=== PATIENT | male | born 1970 ===

== ENCOUNTER 2018-09-14 21:35 | Emergency (ER) | payer MEDICAID ==
[2018-09-14 22:02] VITALS: O2SAT 98
--- NOTE | 2018-09-14 22:19 | C.PDOC ---
Time Seen by Provider: 09/14/18 22:19 Chief Complaint (Nursing): Substance Abuse Past Medical History Vital Signs: Last Vital Signs Temp 98.1 F 09/14/18 21:54 Pulse 106 H 09/14/18 21:54 Resp 22 09/14/18 21:54 BP 123/80 09/14/18 21:54 Pulse Ox 98 09/14/18 21:54 - Medical History PMH: Bipolar Disorder, Post Traumatic Stress Disorder, Schizophrenia - Social History Hx Alcohol Use: No Hx Substance Use: Yes - Immunization History Hx Tetanus Toxoid Vaccination: Yes Hx Influenza Vaccination: Yes Hx Pneumococcal Vaccination: No ED Course And Treatment O2 Sat by Pulse Oximetry: 98 Disposition Counseled Patient/Family Regarding: Studies Performed, Diagnosis - Disposition Disposition Time: 22:19
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
[2018-09-14] MEDS ORDERED: White Petrolatum/Mineral Oil Ophth Oint(3.5 gm) OU STA (22:38)
[2018-09-14] MEDS ORDERED: Carboxymethylcellulose 1% Ophth Soln OD PRN (22:52)
[2018-09-14 23:47] LABS: BASO % 0.6 % (0.0-2.0); EOS # 0.1 K/uL (0.0-0.7); EOS % 1.8 % (0.0-4.0); HEMOGLOBIN 13.2 g/dL (12.0-18.0); LYMPH # 2.1 K/uL (1.0-4.3); LYMPH % 30.3 % (20.0-40.0); MEAN CELL VOLUME 85.2 fL (80.0-94.0); MEAN CORPUSCULAR HEMOGLOBIN 28.3 pg (27.0-31.0); MEAN CORPUSCULAR HGB CONC 33.3 g/dL (33.0-37.0); MEAN PLATELET VOLUME 8.3 fL (7.2-11.7); MONO # 0.8 K/uL (0.0-0.8); MONO % 10.8 % (0.0-10.0); NEUT % 56.5 % (50.0-75.0); RBC 4.67 Mil/uL (4.40-5.90); RED CELL DISTRIBUTION WIDTH 15.7 % (11.5-14.5)
[2018-09-14 23:51] LABS: SQUAMOUS EPITHIAL 1 /hpf (0-5); URINE BACTERIA OCC (<OCC); URINE BILIRUBIN NEGATIVE (NEGATIVE); URINE BLOOD NEGATIVE (NEGATIVE); URINE CLARITY Clear (Clear); URINE COLOR Yellow (YELLOW); URINE GLUCOSE (UA) NORMAL (Normal); URINE LEUKOCYTE ESTERASE NEG Leu/uL (Negative); URINE PROTEIN NEGATIVE (NEGATIVE)
[2018-09-14 23:56] LABS: PROTHROMBIN TIME 10.8 SECONDS (9.7-12.2)
[2018-09-14 23:59] LABS: BLOOD UREA NITROGEN 25 mg/dL (9-20); CALCIUM 8.9 mg/dl (8.6-10.4); GFR NON-AFRICAN AMERICAN > 60
[2018-09-15 00:04] LABS: BARBITURATES, UR NEGATIVE (NEGATIVE); BENZODIAZEPINES, UR NEGATIVE (NEGATIVE); PHENCYCLIDINE, UR NEGATIVE (NEGATIVE)
[2018-09-15 01:04] LABS: OPIATES, UR POSITIVE (NEGATIVE)
[2018-09-15 01:47] VITALS: BP 128/73; PULSE 79; RESP 19; TEMP 97.6
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
== END 2018-09-15 02:56 | disposition left against medical advice (07) ==
LOC: C.ER 21:35
DX: S02.2XXA Fracture of nasal bones, initial encounter for closed fracture (principal); Y09 Assault by unspecified means; F19.10 Other psychoactive substance abuse, uncomplicated

== ENCOUNTER 2018-09-15 15:19 | Emergency (ER) | payer MEDICAID ==
[2018-09-15 15:26] VITALS: BP 148/84; PULSE 100; RESP 18; TEMP 97.9; O2SAT 99
--- NOTE | 2018-09-15 16:22 | C.PDOC ---
History Of Present Illness 47 y/o male comes in to ED requesting heroin detox. Patient was here yesterday but left. He had CT scan of Head, orbits and Chest and abdomen. He was diagnosed with comminuted nasal bone fracture. States his last heroin use was this morning. Patient has no other complaints. Time Seen by Provider: 09/15/18 15:41 Chief Complaint (Nursing): Substance Abuse History Per: Patient History/Exam Limitations: no limitations Onset/Duration Of Symptoms: Days Current Symptoms Are (Timing): Still Present Past Medical History Reviewed: Historical Data, Nursing Documentation, Vital Signs Vital Signs: Last Vital Signs Temp 97.9 F 09/15/18 15:22 Pulse 100 H 09/15/18 15:22 Resp 18 09/15/18 15:22 BP 148/84 09/15/18 15:22 Pulse Ox 99 09/15/18 15:22 - Medical History PMH: Arthritis, Bipolar Disorder, Hepatitis (C), HTN, Post Traumatic Stress Disorder, Schizophrenia Denies: Diabetes, HIV, Seizures, Sexually Transmitted Disease Family History: States: No Known Family Hx - Social History Hx Alcohol Use: Yes Hx Substance Use: Yes - Immunization History Hx Tetanus Toxoid Vaccination: Yes Hx Influenza Vaccination: Yes Hx Pneumococcal Vaccination: No Review Of Systems Constitutional: Negative for: Fever, Chills Cardiovascular: Negative for: Chest Pain Respiratory: Negative for: Shortness of Breath Gastrointestinal: Negative for: Abdominal Pain Psych: Positive for: Other (Heroin abuse). Negative for: Suicidal ideation Physical Exam - Physical Exam Appears: Non-toxic, No Acute Distress Skin: Warm, Dry Head: Atraumatic, Normacephalic Eye(s): bilateral: Normal Inspection, PERRL Oral Mucosa: Moist Neck: Supple Chest: Symmetrical Cardiovascular: Rhythm Regular, No Murmur Respiratory: Normal Breath Sounds, No Rales, No Rhonchi, No Wheezing Extremity: Bilateral: Atraumatic, Normal Color And Temperature, Normal ROM Neurological/Psych: Oriented x3, Normal Speech ED Course And Treatment O2 Sat by Pulse Oximetry: 99 (RA) Pulse Ox Interpretation: Normal Medical Decision Making Medical Decision Making: Explained to patient that there are no detox beds at this time. Spoke with Mel who will put patient on the waiting list. Additional resource center names provided. Disposition - Disposition Disposition: HOME/ ROUTINE Disposition Time: 16:21 Condition: STABLE Instructions: Opioid Use Disorder Forms: [facility] (Armenian) - Clinical Impression Clinical Impression: Opiate dependence, continuous - Scribe Statement The provider has reviewed the documentation as recorded by the Carlosibryland Walden Provider Attestation: All medical record entries made by the Carlosibe were at my direction and personally dictated by me. I have reviewed the chart and agree that the record accurately reflects my personal performance of the history, physical exam, medical decision making, and the department course for this patient. I have also personally directed, reviewed, and agree with the discharge instructions and disposition.
== END 2018-09-15 16:45 | disposition home or self-care (01) ==
LOC: C.ER 15:19
DX: F11.20 Opioid dependence, uncomplicated (principal)

== ENCOUNTER 2018-09-20 19:08 | Inpatient (IN) | payer MEDICAID ==
[2018-09-20 19:44] LABS: BASO % 0.5 % (0.0-2.0); EOS # 0.1 K/uL (0.0-0.7); EOS % 1.4 % (0.0-4.0); HEMOGLOBIN 13.9 g/dL (12.0-18.0); LYMPH # 2.6 K/uL (1.0-4.3); LYMPH % 30.1 % (20.0-40.0); MEAN CELL VOLUME 83.6 fL (80.0-94.0); MEAN CORPUSCULAR HEMOGLOBIN 27.2 pg (27.0-31.0); MEAN CORPUSCULAR HGB CONC 32.6 g/dL (33.0-37.0); MONO # 0.8 K/uL (0.0-0.8); MONO % 9.2 % (0.0-10.0); NEUT # 5.1 K/uL (1.8-7.0); NEUT % 58.8 % (50.0-75.0); NRBC % 0.2 % (0.0-2.0); RBC 5.09 Mil/uL (4.40-5.90); RED CELL DISTRIBUTION WIDTH 15.3 % (11.5-14.5); WHITE BLOOD COUNT 8.6 K/uL (4.8-10.8)
[2018-09-20 19:59] LABS: SQUAMOUS EPITHIAL 2 /hpf (0-5); URINE BILIRUBIN NEGATIVE (NEGATIVE); URINE BLOOD NEGATIVE (NEGATIVE); URINE CLARITY Hazy (Clear); URINE COLOR Yellow (YELLOW); URINE GLUCOSE (UA) NORMAL (Normal); URINE LEUKOCYTE ESTERASE NEG Leu/uL (Negative); URINE PROTEIN NEGATIVE (NEGATIVE)
[2018-09-20 20:06] LABS: BARBITURATES, UR NEGATIVE (NEGATIVE); BENZODIAZEPINES, UR NEGATIVE (NEGATIVE); PHENCYCLIDINE, UR NEGATIVE (NEGATIVE)
[2018-09-20 20:13] LABS: ALB/GLOB RATIO 1.8 (1.0-2.1); ALBUMIN 4.6 g/dL (3.5-5.0); ALT/SGPT 39 U/L (21-72); AST/SGOT 31 U/L (17-59); BLOOD UREA NITROGEN 16 mg/dL (9-20); CALCIUM 9.1 mg/dl (8.6-10.4); GFR NON-AFRICAN AMERICAN > 60; OPIATES, UR POSITIVE (NEGATIVE)
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
[2018-09-20] MEDS ORDERED: Aluminum Hydroxide/Magnesium Hydroxide Susp (30 mL) PO PRN (23:29)
--- NOTE | 2018-09-21 00:40 | PCM.BM ---
<Ponce Shankar - Last Filed: 09/21/18 00:38> Treatment Plan Problems - Problems identified on initial assessmt Abnormal Vital Sign Date Initiated: 09/21/18 Time Initiated: 00:39 Assessment reference: NA Status: Active Defensive Coping Date Initiated: 09/21/18 Time Initiated: 00:39 Assessment reference: NA Low Motivation to Change Date Initiated: 09/21/18 Time Initiated: 00:40 Assessment reference: NA Status: Active Treatment assets and liabiliti Patient Assests: cooperative, ADL independent, good support system, cognitively intact Patient Liabilities: substance abuse - Milieu Protocol Maintain good personal hygiene: daily Encourage regular showers, daily Remind patient to perform daily oral care, daily Assist patient to perform ADL's Maintain personal safety: every shift Educate patient to report safety concerns to staff, every shift Monitor environment for contraband/sharps Medication safety: Monitor for expected outcome, potential side effects: every shift, Assess barriers to learning: every shift, Assess readiness for medication education: every shift <Silvio Retana - Last Filed: 09/21/18 12:45> - Diagnosis (1) Bipolar disorder Status: Acute Interventions: 09/21/18 12:46 * Assess/adjust medications daily and /or as needed * See patient on an individual basis 7x/week to assess level of manic behaviors and stability * Discuss risks, benefits, side effects and alternatives of medications * (2) Opioid use disorder, severe, dependence Status: Acute Interventions: 09/21/18 12:46 * Assess 7x/week regarding severity of withdrawal * Educate regarding risks, benefits, side effects and alternatives of medications * Use Motivational Interviewing for abstinence * Use CBT for relapse prevention * Medication management for withdrawal symptoms * Encourage medication assisted treatment * <Cortney Tilley - Last Filed: 09/21/18 14:46> Family Contact Family involvement: Famliy/SO not involved - Goals for Treatment Patient goals for treatment: Complete detox and discuss aftercare options with counseling staff. Discharge/Continuing Care - Education Needs Education Needs: Patient Medication, Patient Diagnosis/Disease Process, Patient Coping Skills, Patient Anger Management skills, Patient Placement options, Patient Community resources, Significant Other Diagnosis/Disease Process - Discharge Discharge Criteria: Free of agitation, No longer exhibiting s/s of withdrawal, Reduction of target symptoms Discharge to:: Home - Treatment Team Participation Patient/Family/SO Statement: 09/21/18 14:46 "I don't know what I wanna do right now. I just feel sick!" Discussed with Family/SO: No Was Patient/Family/SO present at Treatment Team Meeting: Yes
[2018-09-21] MEDS ORDERED: Buprenorphine Hydrochloride 2 mg SL ONE ×2 (10:04→11:00)
[2018-09-21 11:25] VITALS: RESP 18
--- NOTE | 2018-09-21 12:33 | PCM.PSYCH ---
Initial Psychiatric Evaluation - Initial Psychiatric Evaluation Type of Admission: Voluntary Legal Status: Capacity Chief Complaint (in patient's own words): "I need help, I am withdrawing. No one gave me anything" History of Present Illness and Precipitating Events: 47 year old male, who has a with grandchildren, currently unemployed, living by himself presents to the hospital for heroin withdrawal. Pt states he came to the hospital because "the withdrawal was so bad". Pt states he started using heroin 25 years ago, using about 2 bundles per day, with his last use being yesterday. Pt also states he uses cocaine, crack, marijuana, and benzos, "once in a while, but heroin is the main issue". Pt denies smoking cigarettes or drinking alcohol. Pt has a history of detox "many times" and has been to rehab once. Pt states he has been admitted into inpatient psychiatric "a couple of times". Pt has seen a psychiatrist in the past for his depression, but has not followed up in years. Pt reports that he has been using a lot and this has been a chronic problem. Pt does want help to get off the heroin, but is mainly concerned about the withdrawal symptoms he is experiencing. Pt reports feeling depressed. Pt also reports nausea, diffuse body aches, sweats, chills, abd cramps, leg pain, restlessness, and anxiety. Pt appears in distress and is yawning and tearing throughout the examination. Pt denies suic idal or homicidal ideations, auditory or visual hallucinations, or paranoia at this time. Past Psych Hx: Bipolar depression, PTSD, ADHD - non-copliant with meds PMH: Asthma, arthritis and HTN - non-compliant with meds. PCP is Dr. Quarles PSH: denies Meds: denies Allergies: denies Current Medications: Active Medications Generic Name Dose Route Start Last Admin Trade Name Freq PRN Reason Stop Dose Admin Al Hydrox/Mg Hydrox/Simethicone 30 ml 09/20/18 23:29 Maalox 30 Ml PO TID PRN Indigestion / Heartburn Clonidine HCl 0.1 mg 09/20/18 23:29 Catapres PO Q4 PRN COWS Score More or Equal to 5 Dicyclomine HCl 10 mg 09/20/18 23:29 Bentyl PO Q6 PRN Muscle spasm Gabapentin 400 mg 09/21/18 10:00 09/21/18 10:53 Neurontin PO Not Given TID CHANTELL Hydroxyzine HCl 25 mg 09/20/18 23:31 Atarax PO Q6 PRN Anxiety Ibuprofen 600 mg 09/20/18 23:29 Motrin Tab PO Q6 PRN Pain, moderate (4-7) Loperamide HCl 2 mg 09/20/18 23:29 Imodium PO Q8 PRN Diarrhea Ondansetron HCl 4 mg 09/20/18 23:29 Zofran Tab PO Q8 PRN Nausea/Vomiting Trazodone HCl 50 mg 09/20/18 23:30 09/21/18 00:03 Desyrel PO Not Given HS CHANTELL Past Psychiatric History - Past Psychiatric History Previous Treatment History: Inpatient Pertinent Medical Hx (Current Medical&Sleep Prob, Allergies): Allergies Allergy/AdvReac Type Severity Reaction Status Date / Time No Known Allergies Allergy Verified 09/20/18 19:18 Buspar 09/20/18 [place] Carbonate 600 mg PO QPM 09/20/18 Oxybutynin [Oxybutynin Chloride] 10 mg PO DAILY 09/20/18 Risperidone [Risperdal] 2 mg PO BID 09/20/18 Tamsulosin [Flomax] 0.4 mg PO DAILY 09/20/18 amLODIPine [Norvasc] 10 mg PO DAILY 09/20/18 Review of Systems - Psychiatric Psychiatric: Abnormal Sleep Pattern, Anhedonia, Anxiety, Behavioral Changes, Change in Appetite, Depression, Difficulty Concentrating, Irritability, Mood Swings. absent: Hallucinations, Homicidal Ideation, Paranoia, Suicidal Ideation Mental Status Examination - Personal Presentation Personal Presentation: Looks stated age - Affect Affect: Other (intense) - Motor Activity Motor Activity: Calm - Reliability in Providing Information Reliability in Providing Information: Fair - Speech Speech: Organized - Mood Mood: Depressed, Anxious, Other (irate) - Formal Thought Process Formal Thought Process: No Impairment - Cognitive Functions Orientation: Person, Place, Situation, Time Sensorium: Alert Attention/Concentration: Easily distracted Estimate of Intelligence: Average Judgement: Intact, as evidence by: Insight regarding need for hospitalization Memory: Recent intact, as evidence by: Ability to recall events of the day, Remote intact, as evidenced by: Abilit to recall sig. 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 Attend groups and activities Supportive therapy and psychoeducation [place] for abstinence CBT for relapse prevention Encourage MAT Refer to rehab or IOP, and self-help groups Teach healthy lifestyle methods, i.e. diet, exercise, meditation Smoking cessation with [place] Nicotine patch if needed 32 min Projected ELOS: 5 days Prognosis: good with treatment - Smoking Cessation Smoking Cessation Initiated: Yes
[2018-09-21 14:17] VITALS: O2SAT 99
[2018-09-21 17:07] VITALS: BP 161/84; PULSE 81; TEMP 98.6
--- NOTE | 2018-09-21 23:54 | PCM.PYCHDC ---
Mental Status Examination - Mental Status Examination Orientation: Person Discharge Summary - Discharge Note Consultations:: List each consultation separately and include: 1. Reason for request. 2. Findings. 3. Follow-up Summary of Hospital Course include:: 1. Description of specific treatment plan utilized for patients during their course of treatmen. 2. Summarize the time- course for resolution of acute symptoms and/or regressed behaviors. 3. Describe issues identified and worked on during hospitalization. 4. Describe medication utilized. 5. Describe medical problems identified and treated. 6. Reassessment of suicide risk Summary of Hospital Course: 47 year old male, who has a with grandchildren, currently unemployed, living by himself presents to the hospital for heroin withdrawal. Pt states he came to the hospital because "the withdrawal was so bad". Pt states he started using heroin 25 years ago, using about 2 bundles per day, with his last use being yesterday. Pt also states he uses cocaine, crack, marijuana, and benzos, "once in a while, but heroin is the main issue". Pt denies smoking cigarettes or drinking alcohol. Pt has a history of detox "many times" and has been to rehab once. Pt states he has been admitted into inpatient psychiatric "a couple of times". Pt has seen a psychiatrist in the past for his depression, but has not followed up in years. Pt reports that he has been using a lot and this has been a chronic problem. Pt does want help to get off the heroin, but is mainly concerned about the withdrawal symptoms he is experiencing. Pt reports feeling depressed. Pt also reports nausea, diffuse body aches, sweats, chills, abd cramps, leg pain, restlessness, and anxiety. Pt appears in distress and is yawning and tearing throughout the examination. Pt denies suicidal or homicidal ideations, auditory or visual hallucinations, or paranoia at this time. Past Psych Hx: Bipolar depression, PTSD, ADHD - non-copliant with meds PMH: Asthma, arthritis and HTN - non-compliant with meds. PCP is Dr. Quarles PSH: denies Meds: denies Allergies: denies Pt was agitated easily and later on got caught smoking. He is discharged. - Final Diagnosis (DSM 5) Condition upon Discharge: STABLE Disposition: AGAINST MEDICAL ADVICE Follow-up Treatment Plan: Taper with Subutex Gabapentin for augmentation Seroquel for bipolar depression As needed medications Maalox, Clonidine, Bentyl, Atarax, Motrin, Imodium, Zofran, and Trazodone All risks, benefits and alternatives of the meds discussed, and the pt agreed and understood. Attend groups and activities Supportive therapy and psychoeducation [place] for abstinence CBT for relapse prevention Encourage MAT Refer to rehab or IOP, and self-help groups Teach healthy lifestyle methods, i.e. diet, exercise, meditation Smoking cessation with [place] Nicotine patch if needed 32 min
[2018-09-22] MEDS ORDERED: Buprenorphine Hydrochloride 2 mg SL SCH (10:00)
== END 2018-09-21 19:28 | disposition left against medical advice (07) | DRG 743 ==
LOC: C.ER 19:08 → C.7D 22:29
PROC: HZ2ZZZZ Detoxification Services for Substance Abuse Treatment (ICD-10-PCS; principal; 2018-09-20)
PROC: HZ52ZZZ Individual Psychotherapy for Substance Abuse Treatment, Cognitive-Behavioral (ICD-10-PCS; 2018-09-20)
PROC: HZ59ZZZ Individual Psychotherapy for Substance Abuse Treatment, Supportive (ICD-10-PCS; 2018-09-20)
PROC: HZ56ZZZ Individual Psychotherapy for Substance Abuse Treatment, Psychoeducation (ICD-10-PCS; 2018-09-20)
PROC: HZ42ZZZ Group Counseling for Substance Abuse Treatment, Cognitive-Behavioral (ICD-10-PCS; 2018-09-20)
PROC: HZ46ZZZ Group Counseling for Substance Abuse Treatment, Psychoeducation (ICD-10-PCS; 2018-09-20)
PROC: GZHZZZZ Group Psychotherapy (ICD-10-PCS; 2018-09-20)
PROC: GZ58ZZZ Individual Psychotherapy, Cognitive-Behavioral (ICD-10-PCS; 2018-09-20)
PROC: GZ56ZZZ Individual Psychotherapy, Supportive (ICD-10-PCS; 2018-09-20)
DX: F11.23 Opioid dependence with withdrawal (principal); F20.9 Schizophrenia, unspecified; F13.20 Sedative, hypnotic or anxiolytic dependence, uncomplicated; F14.20 Cocaine dependence, uncomplicated; F31.4 Bipolar disorder, current episode depressed, severe, without psychotic features; F90.9 Attention-deficit hyperactivity disorder, unspecified type; F43.10 Post-traumatic stress disorder, unspecified; I10 Essential (primary) hypertension; M19.90 Unspecified osteoarthritis, unspecified site; J45.909 Unspecified asthma, uncomplicated; Z86.19 Personal history of other infectious and parasitic diseases; Z91.14 Patient's other noncompliance with medication regimen

== ENCOUNTER 2019-01-12 16:00 | Emergency (ER) | payer MEDICAID ==
[2019-01-12 16:16] VITALS: BMI 22.6
[2019-01-12 16:17] VITALS: RESP 18
--- NOTE | 2019-01-12 17:00 | C.PDOC ---
History Of Present Illness 48 y/o male presents to the ER requesting detox from heroin. Patient states that his last use was few hours ago. Patient reports that he uses 30 bags per day. He notes that he came to [facility] ER for heroin detox before but he signed out AMA. Denies having suicidal ideation, homicidal ideation, and active physical complaints. Time Seen by Provider: 01/12/19 16:45 Chief Complaint (Nursing): Substance Abuse History Per: Patient History/Exam Limitations: no limitations Suicide/Self Injury Attempted (Context): None Modifying Factor(s): Narcotics Associated Symptoms: Anxiety Past Medical History Reviewed: Historical Data, Nursing Documentation, Vital Signs Vital Signs: Last Vital Signs Temp 99 F 01/12/19 16:15 Pulse 97 H 01/12/19 16:15 Resp 18 01/12/19 16:15 BP 154/91 H 01/12/19 16:15 Pulse Ox 98 01/12/19 16:15 Primary Care Provider: FAMILY PROVIDER,NO - Medical History PMH: Arthritis, Bipolar Disorder, Hepatitis (C), HTN, Post Traumatic Stress Disorder, Schizophrenia Denies: Diabetes, HIV, Seizures, Sexually Transmitted Disease Surgical History: No Surg Hx - [facility] Procedures DETOXIFICATION SERVICES FOR SUBSTANCE ABUSE TREATMENT (09/20/18) GROUP GLASS CURVATURE GAUGER FOR SUBSTANCE ABUSE TREATMENT, PSYCHOEDUCATION (09/20/18) GROUP GLASS CURVATURE GAUGER FOR SUBSTANCE ABUSE, COGNITIVE BEHAVIORAL (09/20/18) GROUP PSYCHOTHERAPY (09/20/18) INDIV PSYCHOTHERAPY FOR SUBSTANCE ABUSE TREATMENT, SUPPORT (09/20/18) INDIV PSYCHOTHERAPY FOR SUBSTANCE ABUSE, COGNITIV BEHAVIORAL (09/20/18) INDIV PSYCHOTHERAPY FOR SUBSTANCE ABUSE, PSYCHOEDUCATION (09/20/18) INDIVIDUAL PSYCHOTHERAPY, COGNITIVE-BEHAVIORAL (09/20/18) INDIVIDUAL PSYCHOTHERAPY, SUPPORTIVE (09/20/18) Family History: States: No Known Family Hx - Social History Hx Alcohol Use: No (pt denied) Hx Substance Use: Yes - Immunization History Hx Tetanus Toxoid Vaccination: Yes Hx Influenza Vaccination: No Hx Pneumococcal Vaccination: No Review Of Systems Except As Marked, All Systems Reviewed And Found Negative. Constitutional: Negative for: Fever, Chills Psych: Negative for: Suicidal ideation Physical Exam - Physical Exam Appears: Non-toxic, No Acute Distress Skin: Normal Color, Warm, Dry Head: Atraumatic, Normacephalic Eye(s): bilateral: Normal Inspection Nose: Normal Oral Mucosa: Moist Neck: Supple Chest: Symmetrical Cardiovascular: Rhythm Regular Respiratory: Normal Breath Sounds Neurological/Psych: Oriented x3, Normal Speech ED Course And Treatment O2 Sat by Pulse Oximetry: 98 (RA) Pulse Ox Interpretation: Normal Progress Note: Case discussed with CRISIS.CRISIS stated that there no beds available. Patient will be placed on waiting list Reassessment Condition: Unchanged Disposition - Disposition Referrals: [facility] [Outside] [facility] [Outside] [facility] [Outside] Disposition: HOME/ ROUTINE Disposition Time: 16:50 Condition: STABLE Additional Instructions: Follow up for further evaluation Instructions: Drug Abuse and Drug Addiction (DC) Forms: Nintu Oy (Croatian) - POA Present On Arrival: None - Clinical Impression Clinical Impression: Drug dependence - PA / RN MATERNAL CHILD / Resident Statement MD/DO has reviewed & agrees with the documentation as recorded. - Scribe Statement The provider has reviewed the documentation as recorded by the Daniel Espinal Provider Attestation All medical record entries made by the Scribe were at my direction and personally dictated by me. I have reviewed the chart and agree that the record a ccurately reflects my personal performance of the history, physical exam, medical decision making, and the department course for this patient. I have also personally directed, reviewed, and agree with the discharge instructions and disposition.
[2019-01-12 17:40] VITALS: BP 145/88; PULSE 81; TEMP 98.1
[2019-01-12 18:00] VITALS: O2SAT 98
== END 2019-01-12 17:40 | disposition home or self-care (01) ==
LOC: C.ER 16:00
DX: F19.20 Other psychoactive substance dependence, uncomplicated (principal); F20.9 Schizophrenia, unspecified; F31.9 Bipolar disorder, unspecified; I10 Essential (primary) hypertension